=== PATIENT | male | born 1960 | race Hispanic/Latino ===

== ENCOUNTER 2017-06-01 01:07 | Emergency (ER) | payer SELFPAY ==
[2017-06-01] MEDS ORDERED: CATAPRES PO ONE (01:26)
[2017-06-01] MEDS ORDERED: AFRIN NS ONE (01:27)
[2017-06-01] MEDS ORDERED: NACL 0.9% 1000 ML 1,000 ML IV ONE ×2 (01:41→03:28)
[2017-06-01] MEDS ORDERED: XYLOCAINE TOPICAL 2% ONE (01:50)
--- NOTE | 2017-06-01 02:01 | Emergency Department Report ---
HPI - General Chief Complaint: Nosebleed Time Seen by Provider: 06/01/17 01:32 - HPI HPI: Room 1 The patient is a 56-year-old male presenting with a chief complaint of epistaxis. He states she's had intermittent epistaxis for the past 3 days. Patient denies any preceding trauma or history of hypertension. Patient states the blood has been coming from both naris. The patient states his most recent episode began today at 19:00. Patient states he's had continuous nasal bleeding since 19:00 Location: Nose Duration: Intermittent 3 days. Constant since 19:00 Quality: Bleeding Severity: Moderate Modifying factors: [see above] Context: [see above] Mode of transportation: The patient drove himself to the emergency department and there are no visitors present ED Past Medical Hx - Past Medical History Previous Medical History?: No - Surgical History Past Surgical History?: Yes Additional Surgical History: neck sx - Family History Family history: no significant - Social History Smoking Status: Current Every Day Smoker Substance Use Type: Alcohol ED Review of Systems ROS: Stated complaint: NOSE BLEEDS Other details as noted in HPI Comment: All other systems reviewed and negative Constitutional: denies: chills, fever Eyes: denies: eye pain, eye discharge, vision change ENT: epistaxis Respiratory: denies: cough, shortness of breath, wheezing Cardiovascular: denies: chest pain, palpitations Endocrine: no symptoms reported Gastrointestinal: denies: abdominal pain, nausea, diarrhea Genitourinary: denies: urgency, dysuria Musculoskeletal: denies: back pain, joint swelling, arthralgia Skin: denies: rash, lesions Neurological: denies: headache, weakness, paresthesias Psychiatric: denies: anxiety, depression Hematological/Lymphatic: denies: easy bleeding, easy bruising Physical Exam - Physical Exam Vital Signs: Vital Signs 06/01/17 01:14 Pulse Rate 119 H Respiratory 24 Rate Blood Pressure 172/120 O2 Sat by Pulse 99 Oximetry Physical Exam: GENERAL: The patient is well-developed well-nourished male sitting on stretcher holding a rag to his nose with obvious epistaxis. [] HEENT: Normocephalic. Atraumatic. Extraocular motions are intact. Bleeding from the right naris. Blood clot present and oropharynx/nasopharynx NECK: Supple. Trachea midline CHEST/LUNGS: Clear to auscultation. There is no respiratory distress noted. HEART/CARDIOVASCULAR: Regular. There is tachycardia. There is no gallop rub or murmur. ABDOMEN: Abdomen is soft, nontender. Patient has normal bowel sounds. There is no abdominal distention. SKIN: There is no rash. There is no edema. There is no diaphoresis. NEURO: The patient is awake, alert, and oriented. The patient is cooperative. The patient has normal speech MUSCULOSKELETAL: There is no evidence of acute injury. ED Course Vital Signs 06/01/17 01:14 Pulse Rate 119 H Respiratory 24 Rate Blood Pressure 172/120 O2 Sat by Pulse 99 Oximetry - Reevaluation(s) Reevaluation #1: 06/01/17 Anterior packing placed with Afrin-soaked gauze and tongue depressor clamp placed. Patient continued to have bleeding anteriorly and posteriorly so subsequently and epistat device was placed. Patient continued to bleed posteriorly epistatic device was removed and bilateral nares were packed with gauze Reevaluation #2: 06/01/17 02:50 Epistatic balloon removed and anterior packing oxymetazoline-soaked gauze with tongue depressor clamp on the outside placed 06/01/17 Patient continued to bleed anteriorly and posteriorly. Subsequently anterior packing was removed and both nares were packed with gauze. - Consultations Consultation #1: 06/01/17 03:55 [facility] called 06/01/17 04:02 [place] with [facility] Lanier. Requests [facility]. Awaiting call back 06/01/17 04:[address] Chaney [place] [place] [facility]suspects bleeding will stop with bilateral packing and blood pressure control. However will accept patient in transfer ED Medical Decision Making - Lab Data Result diagrams: 06/01/17 03:40 06/01/17 01:45 Laboratory Tests 06/01/17 06/01/17 06/01/17 01:45 01:45 01:45 WBC 8.9 RBC 4.22 Hgb 13.4 Hct 39.0 MCV 93 MCH 32 MCHC 34 RDW 13.5 Plt Count 105 L Lymph % (Auto) 35.4 H Johnston % (Auto) 6.8 Eos % (Auto) 3.7 Baso % (Auto) 1.3 Lymph # 3.1 Johnston # 0.6 Eos # 0.3 Baso # 0.1 Seg Neutrophils % 52.8 Seg Neutrophils # 4.7 PT 15.3 H INR 1.22 H APTT 29.4 Sodium 140 Potassium 4.0 Chloride 100.7 Carbon Dioxide 21 L Anion Gap 22 BUN 14 Creatinine 1.1 Estimated GFR > 60 BUN/Creatinine Ratio 12.72 Glucose 113 H Calcium 9.6 Blood Type Antibody Screen WOODY Antibody Screen 06/01/17 06/01/17 02:06 03:40 WBC RBC Hgb 11.6 L Hct 33.8 L MCV MCH MCHC RDW Plt Count Lymph % (Auto) Johnston % (Auto) Eos % (Auto) Baso % (Auto) Lymph # Johnston # Eos # Baso # Seg Neutrophils % Seg Neutrophils # PT INR APTT Sodium Potassium Chloride Carbon Dioxide Anion Gap BUN Creatinine Estimated GFR BUN/Creatinine Ratio Glucose Calcium Blood Type A POSITIVE Antibody Screen TNR WOODY Antibody Screen Negative - EKG Data -: EKG Interpreted by Me EKG shows normal: sinus rhythm Rate: tachycardia (108 bpm) - EKG Data When compared to previous EKG there are: previous EKG unavailable - Differential Diagnosis epistaxis Critical care attestation.: If time is entered above; I have spent that time in minutes in the direct care of this critically ill patient, excluding procedure time. ED Disposition Clinical Impression: Epistaxis, Hypertension Disposition: DC/TX-70 ANOTHER TYPE HLTHCARE Is pt being admited?: No Does the pt Need Aspirin: No Condition: Serious Instructions: Hypertension (ED) Time of Disposition: 04:15 (awaiting transport)
[2017-06-01 02:07] LABS: Basophils % (Auto) 1.3 % (0.0-1.8); Eosinophils % (Auto) 3.7 % (0.0-4.3); Hemoglobin 13.4 gm/dl (11.8-15.2); Mean Corpuscular HGB Conc 34 % (32-34); Mean Corpuscular Hemoglobin 32 pg (28-32); Mean Corpuscular Volume 93 fl (84-94); Platelet Count 105 K/mm3 (140-440); Red Blood Count 4.22 M/mm3 (3.65-5.03); Red Cell Distribution Width 13.5 % (13.2-15.2); White Blood Count 8.9 K/mm3 (4.5-11.0)
[2017-06-01 02:31] LABS: INR 1.22 (0.87-1.13)
[2017-06-01 02:42] LABS: Anion Gap 22 mmol/L; BUN/Creatinine Ratio 12.72; Blood Urea Nitrogen 14 mg/dL (9-20); Calcium 9.6 mg/dL (8.4-10.2); Carbon Dioxide 21 mmol/L (22-30); Chloride 100.7 mmol/L (98-107); Glucose 113 mg/dL (75-100); Sodium 140 mmol/L (137-145)
[2017-06-01 02:48] LABS: Partial Thromboplastin Time 29.4 Sec. (24.2-36.6)
[2017-06-01] MEDS ORDERED: APRESOLINE ONE (03:00)
[2017-06-01] MEDS ORDERED: APRESOLINE IV ONE (03:06)
[2017-06-01] MEDS ORDERED: NORMODYNE IV ONE ×2 (03:35→03:36)
[2017-06-01] MEDS ORDERED: NORMODYNE 200 MG in D5W 160 ML IV ONE (03:36)
[2017-06-01 04:10] LABS: Hematocrit 33.8 % (35.5-45.6); Hemoglobin 11.6 gm/dl (11.8-15.2)
[2017-06-01 05:11] VITALS: BP 100/75
== END 2017-06-01 05:12 | disposition other institution (70) ==
LOC: ED 01:07
DX: R04.0 Epistaxis (principal); I10 Essential (primary) hypertension; F17.210 Nicotine dependence, cigarettes, uncomplicated
CPT/HCPCS: 30905; 36415; 80048; 85014; 85018; 85025; 85610; 85730; 86850; 86900; 86901; 93005; 93010; 96361; 96374; 96375; 99285; J0360; J7030

== ENCOUNTER 2017-06-05 10:17 | Emergency (ER) | payer SELFPAY ==
--- NOTE | 2017-06-05 11:35 | Emergency Department Report ---
Chief Complaint: Nosebleed Stated Complaint: TUBE REMOVAL Time Seen by Provider: 06/05/17 11:30 - HPI History of Present Illness: PT states he was seen on 06-01-17 for nosebleed and transferred to [facility]. PT states he was told he lost a pint and a half of blood. PT states he came in to ED today to have nasal packing removed - ROS Review of Systems: - bleeding - Exam Physical Exam: PT with nasal packing in place. No post pharyngeal bleeding noted MSE screening note: Focused history and physical exam performed. Due to findings the following was ordered: ED Disposition for MSE Condition: Stable
--- NOTE | 2017-06-05 13:21 | Emergency Department Report ---
ED ENT HPI - General Chief complaint: Nosebleed Stated complaint: TUBE REMOVAL Time Seen by Provider: 06/05/17 11:30 Source: patient Mode of arrival: Ambulatory Limitations: No Limitations - History of Present Illness Initial comments: 56-year-old male here requesting removal of nasal packing. Patient had a nosebleed approximate 4 days ago that has resolved and he has not had any bleeding since that time. He did follow-up at [facility] on Monday with an ear nose and throat physician who recommended he keep the packing in until Monday and return to [facility] for removal of the packing. He has not had any recurrent bleeding he is not on a anticoagulant. He did start metoprolol for blood pressure control. MD complaint: epistaxis Location: nose Worsens with: none Context-Epistaxis: other (right-sided nasal packing) Associated Symptoms: denies: fever, cough, pain with swallowing, sore throat - Related Data Allergies Allergy/AdvReac Type Severity Reaction Status Date / Time Opioids - Morphine Analogues Allergy Anaphylaxis Verified 06/01/17 03:57 ED Dental HPI - General Chief complaint: Nosebleed Stated complaint: TUBE REMOVAL Time Seen by Provider: 06/05/17 11:30 Source: patient Mode of arrival: Ambulatory Limitations: No Limitations - Related Data Allergies Allergy/AdvReac Type Severity Reaction Status Date / Time Opioids - Morphine Analogues Allergy Anaphylaxis Verified 06/01/17 03:57 ED Review of Systems ROS: Stated complaint: TUBE REMOVAL Other details as noted in HPI Comment: All other systems reviewed and negative Constitutional: denies: no symptoms reported, chills ENT: denies: ear pain, throat pain, dental pain Respiratory: denies: cough, orthopnea Cardiovascular: denies: chest pain, palpitations Gastrointestinal: denies: abdominal pain, nausea Musculoskeletal: denies: back pain Skin: denies: rash, lesions Neurological: denies: headache, weakness Psychiatric: denies: anxiety, depression ED Past Medical Hx - Past Medical History Previous Medical History?: No Additional medical history: Epistaxis - Surgical History Past Surgical History?: Yes Additional Surgical History: neck sx - Family History Family history: no significant - Social History Smoking Status: Current Every Day Smoker Substance Use Type: Alcohol ED Physical Exam - General Limitations: No Limitations - Head Head exam: Present: atraumatic, normocephalic - Eye Eye exam: Present: normal appearance, PERRL, EOMI - Expanded ENT Exam Expanded Mouth exam: Present: normal external inspection. Absent: drooling, trismus, muffled voice, tongue normal, tongue elevation Teeth exam: Present: normal inspection Throat exam: Positive: normal inspection. Negative: tonsillar erythema - Neck Neck exam: Present: normal inspection. Absent: lymphadenopathy - Respiratory Respiratory exam: Present: normal lung sounds bilaterally, respiratory distress - Cardiovascular Cardiovascular Exam: Present: regular rate, normal rhythm - Back Exam Back exam: Present: normal inspection. Absent: tenderness - Neurological Exam Neurological exam: Present: alert, oriented X3 - Psychiatric Psychiatric exam: Present: normal affect, normal mood - Skin Skin exam: Present: warm, dry ED Course Vital Signs 06/05/17 06/05/17 06/05/17 11:30 12:24 12:25 Temperature 97.4 F L Pulse Rate 83 59 L Respiratory 16 18 18 Rate Blood Pressure 130/91 Blood Pressure 130/88 [Left] O2 Sat by Pulse 100 98 Oximetry - Procedure Description Procedures done: Nasal packing removed without difficulty. Observed for approximately 30 minutes no continued bleeding. ED Medical Decision Making - Medical Decision Making Packing is then placed appropriate amount of time. Plan to remove. Irrigated with saline and will deflate balloon and remove packing. Observed for 30 minutes continued bleeding. Plan to discharge. Critical care attestation.: If time is entered above; I have spent that time in minutes in the direct care of this critically ill patient, excluding procedure time. ED Disposition Clinical Impression: Epistaxis Disposition: DC-01 TO HOME OR SELFCARE Is pt being admited?: No Condition: Stable Instructions: Epistaxis (ED) Additional Instructions: Follow-up with your preferred ear nose and throat physician. Should you have recurrent bleeding please return to the emergency department. Referrals: PRIMARY CARE, [Primary Care Provider] - 3-5 Days
[2017-06-05 13:53] VITALS: BP 161/86
== END 2017-06-05 13:46 | disposition home or self-care (01) ==
LOC: ED 10:17
DX: R04.0 Epistaxis (principal); F17.200 Nicotine dependence, unspecified, uncomplicated

== ENCOUNTER 2018-12-31 09:36 | Outpatient (CLI) | payer OTHER ==
--- NOTE | 2018-12-31 10:45 | XRay Report ---
BILATERAL KNEES, 2 VIEWS History: Pain. Findings: Osteopenia is suspected. No evidence for fracture, bone lesion or significant joint pathology. No large joint effusion. Vascular calcifications are noted posteriorly. Impression: Osteopenia. No evidence for acute injury or significant degenerative changes.
--- NOTE | 2018-12-31 14:44 | XRay Report ---
RIGHT SHOULDER, 3 VIEWS: HISTORY: right shoulder pain. Osteopenia. Mild to moderate osteoarthritic changes are identified at the a.c. joint and glenohumeral joint. No evidence for fracture, dislocation, ligamentous injury or soft tissue abnormality. IMPRESSION: Osteopenia. Osteoarthritis.
--- NOTE | 2018-12-31 14:45 | XRay Report ---
AP AND LATERAL CERVICAL SPINE: History: Pain. Osteopenia. There has been previous anterior fusion from C5-7. There is straightening of the normal lordosis. Moderate to severe degenerative disc disease is identified at C3-4 and C7-T1. The facet joints are in appropriate relationship. Moderate facet arthropathy is noted at C7-T1. No evidence for fracture, malalignment or bone lesion. IMPRESSION: Osteopenia. Surgical changes. Cervical spondylosis as outlined above.
== END 2018-12-31 09:37 | disposition home or self-care (01) ==
LOC: XRAY 09:36
PROVIDERS: ATTEND Internal Medicine
DX: Z02.71 Encounter for disability determination (principal); M47.812 Spondylosis without myelopathy or radiculopathy, cervical region; M19.011 Primary osteoarthritis, right shoulder; M85.811 Other specified disorders of bone density and structure, right shoulder; M85.88 Other specified disorders of bone density and structure, other site; M25.562 Pain in left knee; M25.561 Pain in right knee
CPT/HCPCS: 72040

== ENCOUNTER 2019-03-19 13:24 | Emergency (ER) | payer SELFPAY | END 2019-03-19 17:29 | disposition left against medical advice (07) | LOC: ED 13:24 | DX: I10 Essential (primary) hypertension (principal); Z53.21 Procedure and treatment not carried out due to patient leaving prior to being seen by health care provider ==